=== PATIENT | female | born 1975 | race Caucasian/White ===

== ENCOUNTER 2016-11-28 18:07 | Emergency (ER) | payer MEDICAID ==
[~2016-11-28] VITALS: Ht 154.9 cm; Wt 99.5 kg
[2016-11-28 18:36] VITALS: Ht 154.9 cm; Wt 99.5 kg
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
== END 2016-11-28 19:30 | disposition home or self-care (01) ==
LOC: FTE 18:07
DX: S39.91XA Unspecified injury of abdomen, initial encounter (principal); S59.909A Unspecified injury of unspecified elbow, initial encounter; S39.92XA Unspecified injury of lower back, initial encounter; V43.52XA Car driver injured in collision with other type car in traffic accident, initial encounter
CPT/HCPCS: 99282